=== PATIENT | male | born 1955 | race African-American/Black ===

== ENCOUNTER 2020-04-10 06:20 | Emergency (ER) | payer BC ==
[~2020-04-10] VITALS: Ht 184.5 cm; Wt 113.6 kg
[2020-04-10] MEDS ORDERED: FAMOTIDINE 20MG/2ML IV (PEPCID) IV STA (06:37)
--- NOTE | 2020-04-10 06:43 | ED GI ---
General Chief Complaint: Abdominal/GI Problems Stated Complaint: INDIGESTION Source of Information: Patient Exam Limitations: No Limitations (SALLY BAKER DO) History of Present Illness Date Seen by Provider: Apr 10, 2020 Time Seen by Provider: 06:30 Initial Comments 64-year-old male presents with epigastric pain. Reports it started after eating some spicy food. Gets worse if he lays on his left side better if he lays on his right side. When it happens it seems constant little mild shortness of breath. Patient denies any radiation to his back. He denies any diaphoresis. Patient reports that started last night and hasn't improved. He is here visiting family from [place]. He was tested negative for COVID just prior to coming down for the holiday. (SALLY BAKER DO) Allergies and Home Medications Allergies Coded Allergies: No Known Drug Allergies (Unverified , 04/10/20) Patient Home Medication List Home Medication List Reviewed: Yes (SALLY BAKER DO) Review of Systems Review of Systems Constitutional: No chills, No fever Respiratory: Denies Cough, Denies SOA With Exertion, Denies Wheezing Cardiovascular: Denies Chest Pain, Denies Edema Gastrointestinal: See HPI, Abdominal Pain; Denies Diarrhea, Denies Nausea, Denies Vomiting Genitourinary: Denies Burning, Denies Flank Pain Musculoskeletal: no symptoms reported Skin: No rash Psychiatric/Neurological: No Symptoms Reported (SALLY BAKER DO) Past Cxbgjqw-Sfdene-Iryile Hx Past Med/Social Hx: Reviewed Nursing Past Med/Soc Hx (SALLY BAKER DO) Patient Social History Recent Foreign Travel: No Contact w/Someone Who Travel: No (SALLY BAKER DO) Past Medical History Cardiac: Yes Atrial Fibrillation, High Cholesterol, Hypertension (NOHELIA DUMONT MD) Physical Exam Vital Signs Vital Signs - First Documented 04/10/20 06:33 Temp 36.1 Pulse 70 Resp 16 B/P (MAP) 152/95 (114) Pulse Ox 94 O2 Delivery Room Air (NOHELIA DUMONT MD) Vital Signs Capillary Refill : (SALLY BAKER DO) Height/Weight/BMI Height: '" Weight: lbs. oz. kg; BMI Method: General Appearance: mild distress HEENT: PERRL/EOMI Neck: full range of motion, supple Respiratory: lungs clear, normal breath sounds, no respiratory distress Cardiovascular: normal peripheral pulses, regular rate, rhythm Gastrointestinal: non tender, soft Extremities: non-tender, normal inspection Back: normal inspection, no CVA tenderness Neurologic/Psychiatric: alert, normal mood/affect, oriented x 3 Skin: normal color, warm/dry (SALLY BAKER DO) Progress/Results/Core Measures Results/Orders Lab Results Laboratory Tests Test 04/10/20 06:35 Range/Units White Blood Count 12.3 H 4.3-11.0 10^3/uL Red Blood Count 4.87 4.35-5.85 10^6/uL Hemoglobin 14.6 13.3-17.7 G/DL Hematocrit 44 40-54 % Mean Corpuscular Volume 91 80-99 FL Mean Corpuscular Hemoglobin 30 25-34 PG Mean Corpuscular Hemoglobin Concent 33 32-36 G/DL Red Cell Distribution Width 13.6 10.0-14.5 % Platelet Count 231 130-400 10^3/uL Mean Platelet Volume 10.1 7.4-10.4 FL Immature Granulocyte % (Auto) 0 % Neutrophils (%) (Auto) 72 42-75 % Lymphocytes (%) (Auto) 16 12-44 % Monocytes (%) (Auto) 10 0-12 % Eosinophils (%) (Auto) 2 0-10 % Basophils (%) (Auto) 0 0-10 % Neutrophils # (Auto) 8.8 H 1.8-7.8 X 10^3 Lymphocytes # (Auto) 2.0 1.0-4.0 X 10^3 Monocytes # (Auto) 1.2 H 0.0-1.0 X 10^3 Eosinophils # (Auto) 0.2 0.0-0.3 10^3/uL Basophils # (Auto) 0.1 0.0-0.1 10^3/uL Immature Granulocyte # (Auto) 0.0 0.0-0.1 10^3/uL Sodium Level 138 135-145 MMOL/L Potassium Level 3.6 3.6-5.0 MMOL/L Chloride Level 102 98-107 MMOL/L Carbon Dioxide Level 25 21-32 MMOL/L Anion Gap 11 5-14 MMOL/L Blood Urea Nitrogen 17 7-18 MG/DL Creatinine 1.05 0.60-1.30 MG/DL Estimat Glomerular Filtration Rate > 60 BUN/Creatinine Ratio 16 Glucose Level 136 H 70-105 MG/DL Calcium Level 9.3 8.5-10.1 MG/DL Corrected Calcium 9.1 8.5-10.1 MG/DL Total Bilirubin 1.1 H 0.1-1.0 MG/DL Aspartate Amino Transf (AST/SGOT) 19 5-34 U/L Alanine Aminotransferase (ALT/SGPT) 19 0-55 U/L Alkaline Phosphatase 167 H 40-136 U/L Troponin I < 0.30 <0.30 NG/ML Total Protein 7.7 6.4-8.2 GM/DL Albumin 4.3 3.2-4.5 GM/DL Lipase 30 8-78 U/L (NOHELIA DUMONT MD) Vital Signs/I&O 04/10/20 04/10/20 06:33 07:55 Temp 36.1 Pulse 70 70 Resp 16 16 B/P (MAP) 152/95 (114) 134/89 Pulse Ox 94 96 O2 Delivery Room Air Room Air (NOHELIA DUMONT MD) Progress Progress Note #1: Time: 07:22 Progress Note I assumed care of the patient from Dr. Baker at shift change. pt was waiting on labs, imaging and being given Protonix. ECG had shown the patient's chronic Atrial fibrillation that was rate controlled and no ST elevation. CBC shows mild elevation of WBC to 12.3. Chemistry has no acute significant abnormality to account for his epigastric pain and symptoms since eating spicy foods last night. Specifically his troponin I is <0.30 and Lipase is normal. Plan from Dr. Baker was to consider GI cocktail if needed in addition to Protonix and since the cardiac and pancreas enzymes are negative this is likely still related to gastritis or GI source. Progress Note #2: Time: 07:48 Progress Note Reviewed with pt that his labs were all negative. He states he feels much better after protonix and his Desilverizer had told him to take Pepcid but when he went to buy it OTC it said Pepcid AC and he was not sure what the AC was so he only bought antacids. Will have him take PepcidAC and check with his doctors when they get home. Follow a more bland diet No obstruction on AAS imaging. He had edematous or patchy infiltrates on his lungs but he had no shortness of breath, cough, respiratory symptoms and was maintaining an oxygen saturation in 96-99% range on RA. (NOHELIA DUMONT MD) Initial ECG Impression Date: Apr 10, 2020 Initial ECG Impression Time: 06:43 Initial ECG Rate: 69 Initial ECG Rhythm: A Fib/Flutter Initial ECG Intervals: QT (505) Initial ECG Impression: Atrial Fibrillation (BAKERSALLY Michael RUIZ) Diagnostic Imaging Diagonstic Imaging: Xray Plain Films/CT/US/NM/MRI: abdomen (Acute Abdomen Series) Comments [facility], [place] NAME: [facility] REC#: [id number] PT STATUS: REG ER : 1955 PHYSICIAN: SALLY BAKER DO ADMIT DATE: 04/10/20/ER FS Draft Date of Exam:04/10/20 ACUTE ABD SERIES EXAMINATION: Abdominal radiographs, acute series DATE: April 10, 2020. CLINICAL INDICATION: 64-year-old male, epigastric pain. COMPARISON: None. COMMENTS: Heart size is borderline enlarged. There is no identified pneumothorax. There is no large pleural effusion. There are interstitial and/or alveolar opacities bilaterally. There are gas filled segments of predominantly large bowel which are not grossly distended. There are no abnormally gas distended segments of small bowel. There is no identified free intraperitoneal air, pneumatosis, or portal venous gas. IMPRESSION: 1. Multifocal bilateral interstitial and/or alveolar opacities. Differential diagnostic considerations would include atypical infection and pulmonary edema. Additional confluent airspace consolidative processes are also in the differential diagnosis. 2. The heart appears borderline enlarged. 3. No identified acute abdominal radiographic abnormality. Dictated on workstation # [id number] Dict: 04/10/20 0711 Trans: 04/10/20 0748 [facility] [id number] Interpreted by: ONEIL DAY MD Electronically signed by: (NOHELIA DUMONT MD) Departure Impression Primary Impression: Gastritis Qualified Codes: K29.70 - Gastritis, unspecified, without bleeding Additional Impression: Epigastric abdominal pain Disposition: 01 HOME, SELF-CARE Condition: Improved Departure-Patient Inst. Decision time for Depature: 07:59 (NOHELIA DUMONT MD) Referrals: NO,LOCAL PHYSICIAN (PCP/Family) Primary Care Physician Patient Instructions: Ulcer and Gastritis Diet, Acid Reflux, Adult and Adolescent ED, Gastritis ED Add. Discharge Instructions: Follow a bland diet to help with acid reflux and gastritis. Take Pepcid AC (Famotidine) to help with acid Check with your regular providers when you get home. Return or seek medical care for worsening symptoms All discharge instructions reviewed with patient and/or family. Voiced understanding. ASLLY BAKER DO Apr 10, 2020 06:42 NOHELIA DUMONT MD Apr 10, 2020 07:28
[2020-04-10 06:45] LABS: BASOPHILS % (AUTO) 0 % (0-10); EOSINOPHILS % (AUTO) 2 % (0-10); HEMATOCRIT 44 % (40-54); HEMOGLOBIN 14.6 G/DL (13.3-17.7); LYMPHOCYTES % (AUTO) 16 % (12-44); MEAN CORPUSCULAR HEMOGLOBIN 30 PG (25-34); MEAN CORPUSCULAR HGB CONC 33 G/DL (32-36); MEAN CORPUSCULAR VOLUME 91 FL (80-99); MEAN PLATELET VOLUME 10.1 FL (7.4-10.4); MONOCYTES # (AUTO) 1.2 X 10^3 (0.0-1.0); MONOCYTES % (AUTO) 10 % (0-12); NEUTROPHILS # (AUTO) 8.8 X 10^3 (1.8-7.8); NEUTROPHILS % (AUTO) 72 % (42-75); PLATELET COUNT 231 10^3/uL (130-400); WHITE BLOOD COUNT 12.3 10^3/uL (4.3-11.0)
[2020-04-10 06:46] LABS: BASOPHILS # (AUTO) 0.1 10^3/uL (0.0-0.1); EOSINOPHILS # (AUTO) 0.2 10^3/uL (0.0-0.3)
[2020-04-10 07:05] LABS: BUN/CREATININE RATIO 16; CARBON DIOXIDE 25 MMOL/L (21-32); CHLORIDE 102 MMOL/L (98-107); CREATININE SERUM 1.05 MG/DL (0.60-1.30); GFR ESTIMATED > 60; GLUCOSE 136 MG/DL (70-105); POTASSIUM 3.6 MMOL/L (3.6-5.0); SODIUM 138 MMOL/L (135-145)
[2020-04-10 07:06] LABS: ALANINE AMINOTRANSFERASE 19 U/L (0-55); ALBUMIN 4.3 GM/DL (3.2-4.5); ALKALINE PHOSPHATASE 167 U/L (40-136); BILIRUBIN,TOTAL 1.1 MG/DL (0.1-1.0); CALCIUM 9.3 MG/DL (8.5-10.1); LIPASE 30 U/L (8-78); TOTAL PROTEIN 7.7 GM/DL (6.4-8.2)
--- NOTE | 2020-04-10 07:49 | Diagnostic Imaging Report ---
EXAMINATION: Abdominal radiographs, acute series DATE: April 10, 2020. CLINICAL INDICATION: 64-year-old male, epigastric pain. COMPARISON: None. COMMENTS: Heart size is borderline enlarged. There is no identified pneumothorax. There is no large pleural effusion. There are interstitial and/or alveolar opacities bilaterally. There are gas filled segments of predominantly large bowel which are not grossly distended. There are no abnormally gas distended segments of small bowel. There is no identified free intraperitoneal air, pneumatosis, or portal venous gas. IMPRESSION: 1. Multifocal bilateral interstitial and/or alveolar opacities. Differential diagnostic considerations would include atypical infection and pulmonary edema. Additional confluent airspace consolidative processes are also in the differential diagnosis. 2. The heart appears borderline enlarged. 3. No identified acute abdominal radiographic abnormality. Dictated by: Dictated on workstation # [id number]
[2020-04-10 07:55] VITALS: BP 134/89
== END 2020-04-10 08:11 | disposition home or self-care (01) ==
LOC: ER FS 06:25
DX: K29.70 Gastritis, unspecified, without bleeding (principal); R10.13 Epigastric pain; Z20.828 Contact with and (suspected) exposure to other viral communicable diseases
CPT/HCPCS: 36415; 74022; 80053; 83690; 84484; 85025; 93005; 93041